=== PATIENT | male | born 1945 | race Two or more races ===

== ENCOUNTER 2019-04-26 13:52 | Outpatient (CLI) | payer OTHER ==
[~2019-04-26 13:52] MED LIST: COZAAR50 MG PO; FENOFIBRATE145 MG PO; GLIMEPIRIDE4 MG PO; GLUMETZA1000 MG PO
== END 2019-04-26 13:54 | disposition home or self-care (01) ==
LOC: RAD 13:52
DX: N20.0 Calculus of kidney (principal)

== ENCOUNTER 2019-04-26 14:44 | Outpatient (CLI) | payer OTHER | END 2019-04-26 14:50 | disposition home or self-care (01) | LOC: LAB 14:44 | DX: N30.00 Acute cystitis without hematuria (principal) ==

== ENCOUNTER 2019-05-18 07:32 | Outpatient (CLI) | payer OTHER | END 2019-05-18 07:42 | disposition home or self-care (01) | LOC: TOM 07:32 | DX: C61 Malignant neoplasm of prostate (principal) ==

== ENCOUNTER 2024-05-21 13:55 | Emergency (ER) | payer OTHER ==
[~2024-05-21] VITALS: Ht 175.3 cm; Wt 79.4 kg
[2024-05-21] MEDS ORDERED: CHILDREN'S ASPI81 MG PO (14:32)
[2024-05-21 18:00] LABS: HEMATOCRIT 40.6 % (39.0-48.0); HEMOGLOBIN 13.8 g/dL (13-16.00); MEAN CELL VOLUME 86.9 fL (80.0-100.00); MEAN CORPUSCULAR HEMOGLOBIN 29.6 pg (27.00-32.0); MEAN CORPUSCULAR HGB CONC 34.1 g/dl (32.0-36.0); PLATELET COUNT 195 K/uL (150-450); RED BLOOD COUNT 4.68 M/uL (4.00-6.00); RED CELL DISTRIBUTION WIDTH 14.3 % (11.5-14.5)
[2024-05-21 18:14] LABS: CALCIUM 9.5 mg/dL (8.5-10.1); CREATININE SERUM 1.08 mg/dL (0.70-1.30); GFR 66.12; POTASSIUM 4.28 mEq/L (3.5-5.1)
[2024-05-21 18:19] LABS: PH,URINE 5.5 (5.0-8.0); URINE APPEARANCE Clear; URINE BILIRRUBIN Negative (NEGATIVE); URINE BLOOD Large; URINE COLOR Yellow; URINE GLUCOSE Negative (NEGATIVE); URINE KETONE Negative (NEGATIVE); URINE LEUKOCYTE Negative; URINE NITRATE Negative
[2024-05-21 18:20] LABS: URINE BACTERIA 151.1 uL (0.0-1933); URINE EPITHELIAL CELLS 3.8 uL (0.0-38.8); URINE RBC 215.2 uL (0.0-20.8); URINE WBC 12.4 uL (0.0-23.2)
[2024-05-21 18:21] LABS: URINE PROTEIN 100 (NEGATIVE)
[2024-05-21] MEDS ORDERED: ACETAMINOPHEN 325 MG TABLET PO STA (19:23)
== END 2024-05-21 20:17 | disposition home or self-care (01) ==
LOC: ER 13:56
PROVIDERS: General Practice
DX: R50.9 Fever, unspecified (principal); Z20.822 Contact with and (suspected) exposure to COVID-19

== ENCOUNTER 2024-06-03 18:05 | Emergency (ER) | payer OTHER ==
[~2024-06-03] VITALS: Ht 165.1 cm; Wt 72.6 kg
[~2024-06-03 18:05] MED LIST changes: +CHILDREN'S ASPI81 MG PO
[2024-06-03 18:22] VITALS: BP 120/58; O2SAT 99
[2024-06-03] MEDS ORDERED: 0.9 % SODIUM CHLORIDE 1,000 ML IV ONE (18:45)
[2024-06-03 19:36] LABS: HEMATOCRIT 41.7 % (39.0-48.0); HEMOGLOBIN 13.8 g/dL (13-16.00); MEAN CELL VOLUME 87.4 fL (80.0-100.00); MEAN CORPUSCULAR HEMOGLOBIN 28.9 pg (27.00-32.0); MEAN CORPUSCULAR HGB CONC 33.1 g/dl (32.0-36.0); PLATELET COUNT 545 K/uL (150-450); RED BLOOD COUNT 4.77 M/uL (4.00-6.00)
[2024-06-03 19:36] LABS: PH,URINE 6.5 (5.0-8.0); URINE APPEARANCE Clear; URINE BILIRRUBIN Negative (NEGATIVE); URINE BLOOD NHT; URINE COLOR Yellow; URINE GLUCOSE Negative (NEGATIVE); URINE KETONE Negative (NEGATIVE); URINE LEUKOCYTE Negative; URINE NITRATE Negative; URINE PROTEIN Negative (NEGATIVE)
[2024-06-03 19:40] LABS: URINE EPITHELIAL CELLS 2.6 uL (0.0-38.8); URINE RBC 16.3 uL (0.0-20.8)
[2024-06-03 19:42] LABS: URINE WBC 1.3 uL (0.0-23.2)
[2024-06-03 19:54] LABS: PARTIAL THROMBOPLASTIN TIME 23.4 SECONDS (22.0-34.0); PROTHROMBIN TIME 10.9 SECONDS (9.0-11.5)
[2024-06-03 20:08] LABS: ALBUMIN 3.6 gm/dL (3.4-5.0); BILIRUBIN TOTAL 0.7 mg/dL (0.3-1.2); CALCIUM 9.3 mg/dL (8.5-10.1); CREATININE SERUM 1.05 mg/dL (0.70-1.30); GFR 68.31; GLOBULINA 3.4 G/DL (2.4-3.5); POTASSIUM 4.14 mEq/L (3.5-5.1)
[2024-06-03] MEDS ORDERED: MAGNESIUM HYDROXIDE 400 MG/5 ML ML PO ONE (23:15)
[2024-06-03] MEDS ORDERED: MINERAL OIL 30 ML BLIST.PACK PO ONE (23:15)
[2024-06-03] MEDS ORDERED: LACTULOSE 10 G/15 ML ML PO ONE (23:15)
== END 2024-06-03 23:26 | disposition home or self-care (01) ==
LOC: ER 18:06
PROVIDERS: General Practice
DX: K59.00 Constipation, unspecified (principal); I10 Essential (primary) hypertension; E11.9 Type 2 diabetes mellitus without complications; Z79.84 Long term (current) use of oral hypoglycemic drugs
CPT/HCPCS: 36415; 74177; Q9965

== ENCOUNTER → 2024-07-06 08:04 | Outpatient (CLI) | payer OTHER ==
[2024-07-06 08:55] LABS: CREATININE SERUM 0.9 mg/dL (0.70-1.30); GFR 81.61
== END | disposition home or self-care (01) ==
LOC: LAB 08:04
PROVIDERS: ATTEND Radiology Diagnostic Radiology
DX: R94.5 Abnormal results of liver function studies (principal); K86.89 Other specified diseases of pancreas

== ENCOUNTER 2024-07-06 08:22 | Outpatient (CLI) | payer OTHER | END 2024-07-06 08:34 | disposition home or self-care (01) | LOC: MRI 08:22 | PROVIDERS: ATTEND Internal Medicine Gastroenterology | DX: K86.89 Other specified diseases of pancreas (principal); R94.5 Abnormal results of liver function studies | CPT/HCPCS: 74183; Q9965 ==